=== PATIENT | male | born 1965 | race Caucasian/White ===

== ENCOUNTER → 2023-06-25 | Day surgery (SDC) | payer BC ==
[2023-06-24 09:20] LABS: Absolute Lymphocytes (CBC) 1.9 K/uL (0.7-4.9); Lymphocytes % 28.3 % (15.3-44.8); MCV 85.8 fL (80-100); MPV 9.4 fL (7.6-11.3); Platelets 204 thou/uL (152-406); RBC Red Blood Cell Count 5.24 M/uL (4.33-5.43)
--- NOTE | 2023-06-24 09:22 | RAD REPORT ---
EXAM DESCRIPTION: RAD - Chest Pa And Lat (2 Views) - 06/24/2023 9:09 am CLINICAL HISTORY: Pre op pending heart catheterization, history of stent, smoker COMPARISON: No comparisons FINDINGS: Lines: None. Lungs: No evidence of edema or pneumonia. Pleural: No significant pleural effusions or pneumothorax. Cardiac: The heart size is within normal limits. Mediastinum: Within normal limits. Bones: No acute fractures. Other: None IMPRESSION: No acute cardiopulmonary disease.
[2023-06-24 09:27] LABS: Protime INR 1.02
[2023-06-24 09:37] LABS: Potassium 3.7 mEq/L (3.5-5.1)
[~2023-06-25] MED LIST: ASPIRIN 325 MG TAB ONE; ATROPINE SULF 1 MG/10 ML SYR IV ONE; CLOPIDOGREL 75 MG TABLET ONE; FAMOTIDINE 20 MG TAB PO ONE; FENTANYL CITR 100 MCG/2 ML ONE; HEPA 1000U/500MLS 0 UNIT/0 ML BAG IV ONE; HEPA 1000U/500MLS 2,000 UNIT/1,000 ML BAG IV ONE; HEPARIN 10,000 UNIT/10 ML VIAL IV ONE; HEPARIN 5000 UNIT/ML 1 ML VIAL ONE; LIDOCAINE 1% 20 ML MDV ONE; MIDAZOLAM HCL 2 MG/2 ML INJ ONE; NA CHLORIDE 0.9% 500 ML ONE; NITROGLYCERIN 100 MCG/ML SYR (for cath lab use only) IV ONE; NITROGLYCERIN/D5W 25 MG/250 ML BTL IV ONE; REGADENOSON 0.4 MG/5 ML SYR IV ONE; TICAGRELOR 90 MG TABLET PO ONE; VERAPAMIL HCL 10 MG/4 ML VIAL IV ONE
--- NOTE | 2023-06-25 09:44 | OP ---
Date of Procedure: 06/25/2023 Surgeon: PRAKASH HOWARD Procedures Performed: 1.Selective coronary angiogram. 2.Left heart catheterization. 3.FFR of mid LAD stenosis, was insignificant at 0.81. 4.PCI of severe proximal left circumflex stenosis, I used 3.0 x 24 mm Synergy drug-eluting stent. Indication: Chest pain with abnormal stress test. Access: Right radial artery 6-Kyrgyz closed with TR band. Complications: None. Bleeding: Less than 20 mL. Description Of Procedure: After risks, benefits, alternatives were explained, the patient agreed to procedure and signed informed consent. The patient was brought into the cardiac catheterization [facility], prepped and draped in the usual sterile fashion. Then, I accessed the right radial artery us ing pediatric micropuncture kit, placed a 6-Kyr[place] Slender sheath and took a 5-Kyr[place] Tivoli 4.[address] into the aortic root, engaged left main and then right coronary artery, took standard views and t hen I pushed the catheter over the wire into the LV, measured the LVEDP and pullback did not record a ny gradient. Then, we gave systemic heparin to assure ACT level above 250 and then I took a 6-Kyr[place] EBU3.5 guide into the aortic root over a J-wire, engaged left main and took a FFR wire into the aort ic root. Pressures were equalized and then the wire was advanced across the mid LAD lesion. FFR was done using Lexiscan and it was negative at 0.81. The wire was pulled back and there was no drift. Then, I took the same wire into the left circumflex and placed distally and using a 3.0 balloon to hi gh pressure, the lesion expanded and then I placed with 3.0 X 24 mm Synergy drug-eluting stent with e xcellent expansion and final angiogram was satisfactory after removal of the wire and the catheter an d the sheath, and placed TR band with good hemostasis. Findings: 1.Left main; large and normal. 2.LAD; proximal is large and then there was a stent that is open in the proximal segment and the mid segment. It becomes small and there is iSR about 60% and FFR was 0.81. Diagonal branches big and w ith luminal irregularities. 3.Left circumflex; moderate size with proximal 80% stenosis, status post successful PCI as above and then the OM is large, but the left circumflex becomes small and ostially after the takeoff, the OM i s 70% stenosis with a very small vessel. 4.RCA; very large and dominant, proximal 70%, heavily calcified mid, ranging between 80% to 90%, mul tiple tandem lesions and that is calcified. 5.Elevated LVEDP at 30 mmHg. Conclusion: 1.Severe left circumflex and RCA stenosis, status post PCI of the left circumflex today. 2.Moderate LAD disease. Plan: 1.Aspirin, Plavix, and statin. The patient was loaded with aspirin and Plavix today to be continued . 2.Staged PCI with shock wave lithotripsy of the RCA at [place]. SR/MODL Voice ID: [id number] Report ID: [id number]
[2023-06-25 12:55] VITALS: O2SAT 97
[2023-06-25 12:58] VITALS: BP 150/60
--- NOTE | 2023-06-25 14:59 | EKG ---
Test Date: 2023-06-24 Test Time: 08:54:12 Tower Equipment Repairer: KATHRIN MEASUREMENT RESULTS: Intervals: Rate: 60 CA: 188 QRSD: 106 QT: 412 QTc: 412 [place]: P: 75 CA: 188 QRS: -35 T: 80 INTERPRETIVE STATEMENTS: Normal sinus rhythm Left axis deviation ST abnormality, possible digitalis effect Abnormal ECG No previous ECG available for comparison Electronically Signed On 06-25-23 14:55:08 CDT by Yusef Lima
== END ==
LOC: PRE 06:30
PROVIDERS: ATTEND Internal Medicine
DX: I25.10 Atherosclerotic heart disease of native coronary artery without angina pectoris (principal); I73.9 Peripheral vascular disease, unspecified; I10 Essential (primary) hypertension; E78.5 Hyperlipidemia, unspecified; Z87.891 Personal history of nicotine dependence; Z79.02 Long term (current) use of antithrombotics/antiplatelets; Z79.82 Long term (current) use of aspirin; Z79.899 Other long term (current) drug therapy
CPT/HCPCS: 36415; 71046; 76937; 80048; 85025; 85347; 85610; 85730; 92928; 93005; 93458; 93571; C1725; C1769; C1893; J0461; J1644; J2001; J2250; J2785; J3010; J7040; Q9966